=== PATIENT | female | born 1940 | race Hispanic/Latino ===

== ENCOUNTER 2017-06-27 17:33 | Emergency (ER) | payer MEDICARE ==
[2017-06-27 17:34] VITALS: BMI 24.1
[2017-06-27 18:28] VITALS: RESP 18; TEMP 98.1
--- NOTE | 2017-06-27 18:51 | ED PDOC ---
Arrival/HPI - General Chief Complaint: Lower Extremity Problem/Injury Time Seen by Provider: 06/27/17 18:37 Historian: Patient - History of Present Illness Narrative History of Present Illness (Text): 06/27/17 18:49 pt p/w + left knee pain s/p trip and fall 1 day ago after she showered, pt states she landed on both knees but her left knee pain was much worse today; pt was able to stand and ambulate with limping/favoring of left leg; pt denied head injury/neck pain, no fever/chills/sweats, no cp/sob/palpitations, no abd pain, no n/v, no numbness/tingling, no urinary/bowel changes, no sick contact, no travel; pt states her pain is severe, and at home OTC medication (advil) is not helping; pt denied other complaints pt is here for further eval pt's without other complaints. PCP: Dr Quintanilla Time/Duration: 24 hours Symptom Onset: Sudden Symptom Course: Unchanged Quality: Throbbing Severity Level: Severe Activities at Onset: Other (ambulation) Context: Walking, Home Past Medical History - Provider Review Nursing Documentation Reviewed: Yes - Travel History Have you recently traveled outside [place] w/in the past 3 mons?: No - Past History Past History: No Previous - Infectious Disease Hx of Infectious Diseases: None - Tetanus Immunization Tetanus Immunization: Unknown - Reproductive Menopause: Yes Currently : No - Cardiac Hx Cardiac Disorders: No - Pulmonary Hx Respiratory Disorders: No - Neurological Hx Neurological Disorder: No - HEENT Hx HEENT Disorder: Yes (uses glasses) - Renal Hx Renal Disorder: No - Endocrine/Metabolic Hx Hypothyroidism: Yes - Hematological/Oncological Hx Blood Disorders: No - Integumentary Hx Dermatological Disorder: No - Musculoskeletal/Rheumatological Hx Falls: No - Gastrointestinal Hx Gastrointestinal Disorders: No - Genitourinary/Gynecological Hx Genitourinary Disorders: No - Psychiatric Hx Substance Use: No - Surgical History Hx Hysterectomy: Yes - Suicidal Assessment Feels Threatened In Home Enviroment: No Family/Social History - Physician Review Nursing Documentation Reviewed: Yes Family/Social History: No Known Family HX Smoking Status: Former Smoker Hx Alcohol Use: No Hx Substance Use: No Hx Substance Use Treatment: No Allergies/Home Meds Allergies/Adverse Reactions: Allergies acetaminophen Allergy (Verified 05/21/18 19:06) HEADACHE Home Medications: Home Meds Medication Instructions Recorded Confirmed Levothyroxine Sodium 0.088 mg PO DAILY 02/14/13 06/27/17 Review of Systems - Review of Systems Constitutional: Normal Eyes: Normal ENT: Normal Respiratory: Normal Cardiovascular: Normal Gastrointestinal: Normal Genitourinary Female: Normal Musculoskeletal: Other (left knee pain/swelling) Skin: Normal Neurological: Normal Endocrine: Normal Hemo/Lymphatic: Normal Psychiatric: Normal Physical Exam - Physical Exam Narrative Physical Exam (Text): 06/27/17 18:51 General: alert/awake, GCS = 15, oriented x 3, sitting on bed, uncomfortable, cooperative, interactive; NAD Head: NC/AT EYE: PERRLA, EOMI, sclera anicteric, no nystagmus, no photophobia Facial: WNL Oral: uvula/tongue are midline, no exudate/lesions, no drooling/stridor, no dysphonia; intact dentitions NECK: intact ROM, no midline tenderness, no nuchal rigidity, no meningeal signs ; no step off Chest: CTA b/l, no w/r/r; no tachypenia, no accessory muscle use noted Cardiac: +S1, +S2, no m/r/r, no tachycardia Abdominal: +BS, soft/nd/nt, well nourished patient; no masses/rebound/guarding/ rigidity; no sue's sign, no mcburney's point tenderness Extremities: decr ROM to left knee due to pain/swelling, + left anterior knee swelling with tenderness noted on lateral/superior aspect of the left knee, no laxity of the knee noted, no gross deformities, no open sores/wounds noted, no gross bleeding noted; right knee with anterior ecchymosis noted, intact ROM; strength 5/5 grossly intact in all limbs, neurovasc intact b/l; pt is able to bear weight but favors left leg; reflex +2/2 BACK: no step off, no midline tenderness, NO crepitus, no gross deformities noted; Intact ROM SKIN: cap refill < 1 sec, no ulcerations, no petechiae, no rashes NEURO: CNII-XII WNL, no facial asymmetries, no slurr speech, oriented x 3 NIH stroke scale ~ 0 Psych: normal insight, normal affect; follows command with ease Vital Signs Reviewed: Yes Vital Signs Temp Pulse Resp BP Pulse Ox 06/27/17 18:27 98.1 F 98 H 18 118/78 99 Temperature: Afebrile Blood Pressure: Normal Pulse: Regular Respiratory Rate: Normal Appearance: Positive for: Well-Appearing, Non-Toxic, Uncomfortable, Other (alert /awake, cooperative, NAD, GCS = 15, oriented x 3) Pain Distress: Mild Mental Status: Positive for: Alert and Oriented X 3 - Systems Exam Head: Present: Atraumatic, Normocephalic Medical Decision Making ED Course and Treatment: 06/27/17 18:49 Impression: left knee pain, s/p trip and fall i have consider all the differential diagnosis regarding pt's chief medical complaints/clinical findings, including but are not limited to: left knee pain, s/p trip and fall A/P: left knee pain, s/p trip and fall - xray - RICE txt - crutches - supportive care - observe/reevaluation 1929 pt is awaiting xray results 1999 pt felt some improvement pt/family are made aware of pt's medical results pt is recommended for RICE txt pt is recommended to wear knee immobilizer pt is instructed on min weight bearing pt will f/u as directed pt will be discharge home Re-evaluation Time: 20:25 Reassessment Condition: Improving,but remains with symptoms - RAD Interpretation Narrative RAD Interpretations (Text): 06/27/17 20:10 djd/osteopenia no gross fx noted; no dislocation noted + left lateral hyperdense structre noted + left femur dense structure noted, ? bony cyst Radiology Orders: 06/27/17 19:07 KNEE LEFT 2 VIEWS (AP & LAT) [RAD] Stat Research Attorney: ED Physician - Medication Orders Current Medication Orders: Discontinued Medications Ketorolac Tromethamine (Toradol) 15 mg IM STAT STA Stop: 06/27/17 19:23 Last Admin: 06/27/17 19:57 Dose: 15 mg MAR Pain Assessment Document 06/27/17 19:57 AD (Rec: 06/27/17 19:57 [facility] [id number] Pain Reassessment Is this a pain reassessment? No Presence of Pain Presence of Pain Yes Location Left, Right or Bilateral Left Pain Location Body Site Knee IM Administration Charges Document 06/27/17 19:57 AD (Rec: 06/27/17 19:57 [email or web address] Injection Site MAR Injection Site Right Deltoid Charges for Administration # of IM Administrations 1 Oxycodone HCl (Oxycodone Immediate Release Tab) 5 mg PO STAT STA Stop: 06/27/17 19:23 Last Admin: 06/27/17 19:56 Dose: 5 mg MAR Pain Assessment Document 06/27/17 19:56 AD (Rec: 06/27/17 19:56 [id number] Pain Reassessment Is this a pain reassessment? No Presence of Pain Presence of Pain Yes Location Left, Right or Bilateral Left Pain Location Body Site Knee Tetanus/Reduced Diphtheria/Acell Pertussis (Boostrix Vaccine Inj) 0.5 ml IM .ONCE ONE Stop: 06/27/17 19:08 Last Admin: 06/27/17:18 Dose: 0.5 ml Immunization Registry Document 06/27/17 19:18 AD (Rec: 06/27/17 19:18 [email or web address] Immunization Registry Consent Date 06/27/17 Disposition/Present on Arrival - Present on Arrival Any Indicators Present on Arrival: No History of DVT/PE: No History of Uncontrolled Diabetes: No Urinary Catheter: No History of Decub. Ulcer: No History Surgical Site Infection Following: None - Disposition Have Diagnosis and Disposition been Completed?: Yes Diagnosis: Knee pain, left, Knee swelling, Fall, Knee contusion Disposition: HOME/ ROUTINE Disposition Time: 20:10 Patient Plan: Discharge Patient Problems: Current Active Problems Problem Status Onset Knee pain, left Acute Knee swelling Acute Fall Acute Condition: STABLE Discharge Instructions (ExitCare): Preventing Falls in the Older Adult, Knee Pain (DC) Print Language: CONGOLESE Additional Instructions: Make sure to see your doctor in 1-2 days DRINK PLENTY OF FLUIDS take your medications as prescribed REST your knee/leg ice your knee/leg 15min/hr over the next 1-2 days use crutches for ambulation RETURN TO ED IF worse pain, cant breath, persistent vomiting, high fever >101- 102 for hours, altered behavior, slurr speech, facial changes, focal weakness ( arm/leg or both), unable to urinate, heavy/persistent bleeding, passing out, chest pain, or other medical emergencies Prescriptions: Ibuprofen [Motrin] 400 mg PO QID PRN #30 tab PRN Reason: Pain, Mild (1-3) oxyCODONE [oxyCODONE Immediate Release Tab] 5 mg PO TID PRN #10 tab PRN Reason: Pain, Moderate (4-7) Referrals: Roosevelt Quintanilla MD, PhD [Primary Care Provider] - Follow up with primary Aiden Sarabia MD [Staff Provider] - Follow up with primary Forms: [employer] (Korean)
[2017-06-27] MEDS ORDERED: TDAP Vaccine 0.5 mL Syr IM ONE (19:07)
[2017-06-27] MEDS ORDERED: oxyCODONE 5 mg Immediate Release Tab PO STA (19:22)
[2017-06-27 20:48] VITALS: BP 120/82; PULSE 85; O2SAT 100
--- NOTE | 2017-06-28 11:08 | RAD ---
PROCEDURE: Left Knee Radiographs. HISTORY: Pain. COMPARISON: None. FINDINGS: BONES: . No fracture. Bone island suggested lateral tibial metaphysis JOINTS: Tricompartmental osteoarthrosis mild medial lateral femoral tibial compartments. Moderate patellofemoral compartment JOINT EFFUSION: Present OTHER FINDINGS: Shadeella suggested -developmental variant Well corticated ossifications border the posterior superior patellar aspect nonspecific - comparison with prior studies outside if available recommended; soft tissue ossification versus small loose bodies-considerations. These appear more posteriorly positioned to an expected quadriceps insertional enthesophyte site IMPRESSION: Osteoarthrosis -patellofemoral compartment most notably affected. No fracture or lytic lesion Moderate joint effusion Tibial benign-appearing bone island
== END 2017-06-27 20:48 | disposition home or self-care (01) ==
LOC: ED 17:33
DX: S80.02XA Contusion of left knee, initial encounter (principal); W18.2XXA Fall in (into) shower or empty bathtub, initial encounter; Y93.E1 Activity, personal bathing and showering; Y92.002 Bathroom of unspecified non-institutional (private) residence as the place of occurrence of the external cause; M25.562 Pain in left knee; M79.89 Other specified soft tissue disorders; Z23 Encounter for immunization
CPT/HCPCS: 73560; 90471; 90715; 96372; 99283; J1885

== ENCOUNTER 2017-08-18 15:56 | Emergency (ER) | payer MEDICARE ==
[2017-08-18 16:43] VITALS: BMI 21.7
--- NOTE | 2017-08-18 16:57 | ED PDOC ---
Arrival/HPI - General Chief Complaint: ENT Problem Time Seen by Provider: 08/18/17 16:41 Historian: Patient - History of Present Illness Narrative History of Present Illness (Text): 08/18/17 16:45 77 year old female, with past medical history of hypothyroidism and hysterectomy , presents to the Emergency department complaining of difficulty swallowing since 1 week. Patient states worsening difficulty of swallowing solid foods, stating food takes a long time to go down. Patient denies similar symptoms in the past and informs no complaint in swallowing liquids. Despite the presented complaints, patient states compliance with diet as her last intake was yemeni fried rice last night. Patient informs associated nausea but denies any fever, chills, vomiting, diarrhea, abdominal pain, chest pain, shortness of breath or any other complaints. Patient presents to the Emergency department for medical evaluation. PMD: Dr Quintanilla Time/Duration: 1 week Symptom Onset: Gradual Symptom Course: Worsening Activities at Onset: Eating Context: Home Past Medical History - Provider Review Nursing Documentation Reviewed: Yes - Past History Past History: No Previous - Infectious Disease Hx of Infectious Diseases: None - Tetanus Immunization Tetanus Immunization: Unknown - Cardiac Hx Cardiac Disorders: No - Pulmonary Hx Respiratory Disorders: No - Neurological Hx Neurological Disorder: No - HEENT Hx HEENT Disorder: Yes (uses glasses) - Renal Hx Renal Disorder: No - Endocrine/Metabolic Hx Hypothyroidism: Yes - Hematological/Oncological Hx Blood Disorders: No - Integumentary Hx Dermatological Disorder: No - Musculoskeletal/Rheumatological Hx Falls: No - Gastrointestinal Hx Gastrointestinal Disorders: No - Genitourinary/Gynecological Hx Genitourinary Disorders: No - Psychiatric Hx Psychophysiologic Disorder: No Hx Substance Use: No - Surgical History Hx Hysterectomy: Yes - Suicidal Assessment Feels Threatened In Home Enviroment: No Family/Social History - Physician Review Nursing Documentation Reviewed: Yes Family/Social History: No Known Family HX Smoking Status: Former Smoker Hx Alcohol Use: No Hx Substance Use: No Hx Substance Use Treatment: No Allergies/Home Meds Allergies/Adverse Reactions: Allergies acetaminophen Allergy (Verified 08/18/17 16:38) HEADACHE Home Medications: Home Meds Medication Instructions Recorded Confirmed Levothyroxine Sodium 0.088 mg PO DAILY 02/14/13 08/18/17 Review of Systems - Physician Review All systems were reviewed & negative as marked: Yes - Review of Systems Constitutional: absent: Fevers ENT: Other (Difficulty swallowing) Respiratory: absent: SOB Cardiovascular: absent: Chest Pain Gastrointestinal: Nausea. absent: Abdominal Pain, Diarrhea, Vomiting Physical Exam - Physical Exam Narrative Physical Exam (Text): 08/18/17 16:57 Gen: VS reviewed, alert, well developed, well nourished, nontoxic, mild distress ENT: normal pharynx Eye: EOMI, PERRL Neck: no JVD, supple, no adenopathy CV: regular rate, regular rhythm, no rubs,no murmur, no gallops, S1, S2, pulses equal and strong Pulm: no distress, clear to auscultation, no wheeze, no rhonchi, breath sounds equal, no rales Abd: soft, nontender, no guarding, no rebound, no rigidity, normal bowel sounds Ext: no edema Skin: good color, no rash, no cyanosis Psych: responds appropriately to questions, normal affect Neuro: oriented x3, CN2-12 intact grossly, motor intact, sensation intact Vital Signs Reviewed: Yes Vital Signs Temp Pulse Resp BP Pulse Ox 08/18/17 20:39 98.2 F 72 18 147/68 99 08/18/17 20:00 98.2 F 72 18 147/68 99 08/18/17 16:39 98.3 F 85 17 152/73 H 98 Temperature: Afebrile Blood Pressure: Hypertensive Pulse: Regular Respiratory Rate: Normal Appearance: Positive for: Well-Appearing, Non-Toxic, Comfortable Pain Distress: None Mental Status: Positive for: Alert and Oriented X 3 Medical Decision Making ED Course and Treatment: 08/18/17 16:57 Impression: 77 year old female presents to the Emergency department for difficulty swallowing. Plan: -- CT of Neck soft tissue -- Labs -- Reassess and disposition Prior Visits: Notes and results from previous visits were reviewed. Progress Notes: 08/18/17 18:[address] Camarena, the night doctor, for pending Ct result, reassessment and disposition. - Lab Interpretations Lab Results: 08/18/17 17:50 08/18/17 17:50 Lab Results 08/18/17 17:50: Sodium 145, Potassium 4.1, Chloride 104, Carbon Dioxide 29, Anion Gap 16, BUN 13, Creatinine 0.6 L, Est GFR ( Amer) > 60, Est GFR ( Non-Af Amer) > 60, Random Glucose 87, Calcium 9.5, Total Bilirubin 0.6, AST 23, ALT 30, Alkaline Phosphatase 88, Total Protein 7.5, Albumin 4.0, Globulin 3.5, Albumin/Globulin Ratio 1.1 08/18/17 17:50: WBC 5.6, RBC 4.03, Hgb 11.1 L, Hct 33.5 L, MCV 83.1, MCH 27.5, MCHC 33.1, RDW 13.8, Plt Count 526 H, MPV 9.3, Gran % 79.1 H, Lymph % (Auto) 11.9 L, Holt % (Auto) 8.5 H, Eos % (Auto) 0.5 L, Baso % (Auto) 0.0, Gran # 4.44 , Lymph # (Auto) 0.7 L, Holt # (Auto) 0.5, Eos # (Auto) 0.0, Baso # (Auto) 0.00 - RAD Interpretation Radiology Orders: 08/18/17 17:00 NECK SOFT TISSUE W/CONTRAST [CT] Stat - Medication Orders Current Medication Orders: Discontinued Medications Sodium Chloride (Sodium Chloride 0.9%) 1,000 mls @ 150 mls/hr IV [id number] Last Admin: 08/18/17 18:01 Dose: 150 mls/hr eMAR Start Stop Document 08/18/17 18:01 SC (Rec: 08/18/17 18:01 [facility]) Intravenous Solution Start Date 08/18/17 Start Time 18:01 - Scribe Statement The provider has reviewed the documentation as recorded by the Gregibalexis Tijerina. All medical record entries made by the Gregibalexis were at my direction and personally dictated by me. I have reviewed the chart and agree that the record accurately reflects my personal performance of the history, physical exam, medical decision making, and the department course for this patient. I have also personally directed, reviewed, and agree with the discharge instructions and disposition. Disposition/Present on Arrival - Present on Arrival Any Indicators Present on Arrival: No History of DVT/PE: No History of Uncontrolled Diabetes: No Urinary Catheter: No History of Decub. Ulcer: No History Surgical Site Infection Following: None - Disposition Have Diagnosis and Disposition been Completed?: Yes Diagnosis: Dysphagia Disposition: HOME/ ROUTINE Disposition Time: 10:18 Condition: GOOD Discharge Instructions (ExitCare): Dysphagia Additional Instructions: LAURA CR, thank you for letting us take care of you today. Your provider was Karlie Camarena MD and you were treated for THROAT. The emergency medical care you received today was directed at your acute symptoms. If you were prescribed any medication, please fill it and take as directed. It may take several days for your symptoms to resolve. Return to the Emergency Department if your symptoms worsen, do not improve, or if you have any other problems. Please contact your doctor or call one of the physicians/clinics you have been referred to that are listed on the Patient Visit Information form that is included in your discharge packet. Bring any paperwork you were given at discharge with you along with any medications you are taking to your follow up visit. Our treatment cannot replace ongoing medical care by a primary care provider outside of the emergency department. Thank you for allowing the [facility] team to be part of your care today. If you had an X-Ray or CT scan: A Radiologist will review the ED reading if any change in treatment is needed we will contact you. If you had a blood, urine, or wound culture: It will take several days for the results, if any change in treatment is needed we will contact you. If you had an STI test: It will take 48 hours for the results. Please call after 1 week if you have not heard back. Referrals: Roosevelt Quintanilla MD, PhD [Primary Care Provider] - Follow up with primary Forms: [employer] (Welsh)
[2017-08-18] MEDS ORDERED: Sodium Chloride 0.9% 1,000 ML IV SCH (17:15)
[2017-08-18 18:01] LABS: EOS % 0.5 % (1.5-5.0); GRAN # 4.44 (1.4-6.5); GRAN % 79.1 % (50.0-68.0); HEMOGLOBIN 11.1 g/dL (12.0-16.0); LYMPH # 0.7 (1.2-3.4); LYMPH % 11.9 % (22.0-35.0); MEAN CELL VOLUME 83.1 fl (80.0-105.0); MEAN CORPUSCULAR HEMOGLOBIN 27.5 pg (25.0-35.0); MEAN CORPUSCULAR HGB CONC 33.1 g/dl (31.0-37.0); MEAN PLATELET VOLUME 9.3 fl (7.0-11.0); MONO # 0.5 (0.1-0.6); MONO % 8.5 % (1.0-6.0); RBC 4.03 10^6/uL (3.5-6.1); RED CELL DISTRIBUTION WIDTH 13.8 % (11.5-14.5); WHITE BLOOD COUNT 5.6 10^3/ul (4.5-11.0)
[2017-08-18 18:22] LABS: BLOOD UREA NITROGEN 13 mg/dL (7-21); CALCIUM 9.5 mg/dL (8.4-10.5); GFR AFRICAN-AMERICAN > 60; GFR NON-AFRICAN AMERICAN > 60
[2017-08-18 18:23] LABS: ALB/GLOB RATIO 1.1 (1.1-1.8); ALT/SGPT 30 U/L (7-56); AST/SGOT 23 U/L (14-36)
[2017-08-18] MEDS ORDERED: Iohexol 350 MG/100 ML VIAL ONE (18:57)
--- NOTE | 2017-08-18 19:05 | ED PDOC ---
Physical Exam Vital Signs Reviewed: Yes Vital Signs Temp Pulse Resp BP Pulse Ox 08/18/17 16:39 98.3 F 85 17 152/73 H 98 Temperature: Afebrile Blood Pressure: Normal Pulse: Regular Respiratory Rate: Normal Appearance: Positive for: Well-Appearing, Non-Toxic, Comfortable Pain Distress: None Mental Status: Positive for: Alert and Oriented X 3 - Systems Exam Head: Present: Atraumatic, Normocephalic Pupils: Present: PERRL Extroacular Muscles: Present: EOMI Conjunctiva: Present: Normal Mouth: Present: Moist Mucous Membranes Neck: Present: Normal Range of Motion Respiratory/Chest: Present: Clear to Auscultation, Good Air Exchange. No: Respiratory Distress, Accessory Muscle Use Cardiovascular: Present: Regular Rate and Rhythm, Normal S1, S2. No: Murmurs Abdomen: No: Tenderness, Distention, Peritoneal Signs Back: Present: Normal Inspection Upper Extremity: Present: Normal Inspection. No: Cyanosis, Edema Lower Extremity: Present: Normal Inspection. No: Edema Neurological: Present: GCS=15, CN II-XII Intact, Speech Normal Skin: Present: Warm, Dry, Normal Color. No: Rashes Psychiatric: Present: Alert, Oriented x 3, Normal Insight, Normal Concentration Medical Decision Making ED Course and Treatment: 08/18/17 19:03 Case endorsed to me by Dr. Neely for pending CT results, reassessment and final disposition. Patient is a 77 year old female with past medical history of hypothyroidism and hysterectomy, presented to the Emergency department earlier today complaining of difficulty swallowing since 1 week. Patient is currently resting in bed in no acute distress. Patient denies any new complaints. 08/18/17 20:15 Patient re-evaluated. She is in no acute distress. Tolerating secretions, no respiratory issues. CT results discussed with patient. Discussed admission for GI consult vs discharge with outpatient followup. Patient states that she does not want to be admitted at this time. Recommended following up with her PMD for specialist referral. Patient is amenable with this plan. She was advised to return to the ED at any time for worsening symptoms- respiratory distress, trouble tolerating secretions, drooling, etc. She verbalizes understanding. Reassessment Condition: Unchanged - Lab Interpretations Lab Results: 08/18/17 17:50 08/18/17 17:50 Lab Results 08/18/17 17:50: Sodium 145, Potassium 4.1, Chloride 104, Carbon Dioxide 29, Anion Gap 16, BUN 13, Creatinine 0.6 L, Est GFR ( Amer) > 60, Est GFR ( Non-Af Amer) > 60, Random Glucose 87, Calcium 9.5, Total Bilirubin 0.6, AST 23, ALT 30, Alkaline Phosphatase 88, Total Protein 7.5, Albumin 4.0, Globulin 3.5, Albumin/Globulin Ratio 1.1 08/18/17 17:50: WBC 5.6, RBC 4.03, Hgb 11.1 L, Hct 33.5 L, MCV 83.1, MCH 27.5, MCHC 33.1, RDW 13.8, Plt Count 526 H, MPV 9.3, Gran % 79.1 H, Lymph % (Auto) 11.9 L, [place] % (Auto) 8.5 H, Eos % (Auto) 0.5 L, Baso % (Auto) 0.0, Gran # 4.44 , Lymph # (Auto) 0.7 L, [place] # (Auto) 0.5, Eos # (Auto) 0.0, Baso # (Auto) 0.00 - RAD Interpretation Narrative RAD Interpretations (Text): Patient Name: LAURA CR Institution Name: [place] [address] Study Type: CT NECK SOFT TISSUE W Ordered As: CT NECK SOFT TISSUE W CONTRAST Date of Dictation: 18 Aug 2017 EDT Date of Exam: 18 Aug 2017 EDT Account Number: Patient : 1940 Patient Location: ED [facility] Former: Account #: Referring Physician: Valeriano NEELY This interpretation is based upon the receipt of 300 images. EXAM: CT Neck With Intravenous Contrast CLINICAL HISTORY: 77 years old, female; Signs and symptoms; Dysphagia / difficulty swallowing; Prior surgery; Surgery date: 6+ months; Surgery type: HX goiter surgery; Patient HX: HX hypothyroidism TECHNIQUE: Axial computed tomography images of the neck with intravenous contrast. All CT scans at this facility use at least one of these dose optimization techniques: automated exposure control; mA and/or kV adjustment per patient size (includes targeted exams where dose is matched to clinical indication); or iterative reconstruction. CONTRAST: 100 mL of omni 350 administered intravenously. COMPARISON: No relevant prior studies available. FINDINGS: Oropharynx: Unremarkable. No tonsillar or peritonsillar abscess. Hypopharynx: Unremarkable. Larynx: Unremarkable. Normal epiglottis. Trachea: Unremarkable. Retropharyngeal space: Unremarkable. Submandibular/parotid glands: Unremarkable. Thyroid: 8 mm ovoid low density right thyroid lobe nodule. Bones/joints: Degenerative changes in the cervical spine most notably at C5-C6 and C6-C7. Mild approximately 10% anterolisthesis C4 on C5, likely chronic. Soft tissues: Unremarkable. Vasculature: No acute findings. Lymph nodes: Unremarkable. Sinuses: Right maxillary sinus mucus retention cyst or polyp. Subcentimeter left posterior ethmoid sinus mucous retention cyst, polyp or polypoid like mucosal thickening. No fluid levels. Dental: Edentulous. Lung apices: Mild hazy density in upper lobes probably atelectasis. IMPRESSION: 8mm right thyroid lobe nodule. ACR White Paper guidelines (Leonid JK, et al. JACR 2015;12(2):143-50) suggest that no follow-up is necessary. Thank you for allowing us to participate in the care of your patient. Dictated and Authenticated by: Guillemro Cesar MD 08/18/2017 7:42 PM Eastern Time ([place] & [place]) Radiology Orders: 08/18/17 17:00 NECK SOFT TISSUE W/CONTRAST [CT] Stat Clinical Investigator: Radiologist - Medication Orders Current Medication Orders: Sodium Chloride (Sodium Chloride 0.9%) 1,000 mls @ 150 mls/hr IV .[id number] Last Admin: 08/18/17 18:01 Dose: 150 mls/hr eMAR Start Stop Document 08/18/17 18:01 [place] (Rec: 08/18/17 18:01 [id number]) Intravenous Solution Start Date 08/18/17 Start Time 18:01 - Scribe Statement The provider has reviewed the documentation as recorded by the [facility] Tijerina. All medical record entries made by the [employer] were at my direction and personally dictated by me. I have reviewed the chart and agree that the record accurately reflects my personal performance of the history, physical exam, medical decision making, and the department course for this patient. I have also personally directed, reviewed, and agree with the discharge instructions and disposition. Disposition/Present on Arrival - Present on Arrival Any Indicators Present on Arrival: No History of DVT/PE: No History of Uncontrolled Diabetes: No Urinary Catheter: No History of Decub. Ulcer: No History Surgical Site Infection Following: None - Disposition Have Diagnosis and Disposition been Completed?: Yes Diagnosis: Dysphagia Disposition: HOME/ ROUTINE Disposition Time: 20:15 Patient Problems: Current Active Problems Problem Status Onset Dysphagia Acute Condition: GOOD Discharge Instructions (ExitCare): Dysphagia Additional Instructions: LAURA CR, thank you for letting us take care of you today. Your provider was Karlie Camarena MD and you were treated for THROAT. The emergency medical care you received today was directed at your acute symptoms. If you were prescribed any medication, please fill it and take as directed. It may take several days for your symptoms to resolve. Return to the Emergency Department if your symptoms worsen, do not improve, or if you have any other problems. Please contact your doctor or call one of the physicians/clinics you have been referred to that are listed on the Patient Visit Information form that is included in your discharge packet. Bring any paperwork you were given at discharge with you along with any medications you are taking to your follow up visit. Our treatment cannot replace ongoing medical care by a primary care provider outside of the emergency department. Thank you for allowing the [facility] team to be part of your care today. If you had an X-Ray or CT scan: A Radiologist will review the ED reading if any change in treatment is needed we will contact you. If you had a blood, urine, or wound culture: It will take several days for the results, if any change in treatment is needed we will contact you. If you had an STI test: It will take 48 hours for the results. Please call after 1 week if you have not heard back. Referrals: Roosevelt Quintanilla MD, PhD [Primary Care Provider] - Follow up with primary Forms: [facility] [employer] (Salvadorean)
[2017-08-18 20:39] VITALS: BP 147/68; PULSE 72; RESP 18; TEMP 98.2; O2SAT 99
--- NOTE | 2017-08-19 08:35 | CT ---
Date of service: 08/18/2017 PROCEDURE: CT NECK WITH CONTRAST HISTORY: dysphagia COMPARISON: None TECHNIQUE: CT of the neck with intravenous contrast. Coronal and sagittal reformats generated. Intravenous contrast dose: Radiation dose: DLP mGy-cm This CT exam was performed using one or more of the following dose reduction techniques: Automated exposure control, adjustment of the mA and/or kV according to patient size, and/or use of iterative reconstruction technique. FINDINGS: NASOPHARYNX: Unremarkable. SUPRAHYOID NECK: Unremarkable oropharynx, oral cavity, parapharyngeal space and retropharyngeal space. INFRAHYOID NECK: Unremarkable larynx, hypopharynx, and supraglottic space. Vocal cords intact. MASS: None. GLANDS: Parotid and submandibular glands unremarkable. Normal size thyroid gland, with 8mm right thyroid nodule. LYMPH NODES: Normal. No lymphadenopathy. CERVICAL SPINE: No fracture or focal lesion. VASCULAR STRUCTURES: Unremarkable. OTHER FINDINGS: None. IMPRESSION: 8 mm right thyroid nodule.
== END 2017-08-18 20:00 | disposition home or self-care (01) ==
LOC: ED 15:56
DX: R13.10 Dysphagia, unspecified (principal)
CPT/HCPCS: 70491; 80053; 85025; 99284; J7030; Q9967